=== PATIENT | female | born 2000 | race Caucasian/White ===

== ENCOUNTER 2023-11-02 02:37 | Emergency (ER) | payer SELFPAY ==
[~2023-11-02] VITALS: Ht 165.1 cm; Wt 61.0 kg
[2023-11-02 02:46] VITALS: O2SAT 99
[2023-11-02] MEDS: MORPHINE SULFATE 4 MG/ML INJ (FOR IV/IM USE) IV ONE (03:15)
[2023-11-02 03:40] LABS: BASOPHILS % 0.3 % (0.0-2.0); EOSINOPHILS % 0.6 % (0.0-5.0); HEMATOCRIT. 41.2 % (36.0-48.0); HEMOGLOBIN. 13.7 g/dL (12.0-16.0); LYMPHOCYTES % 19.2 % (20.0-50.0); MEAN CORPUSCULAR HEMOGLOBIN 31.9 pg (28.0-32.0); MEAN CORPUSCULAR HGB CONC 33.3 g/dL (31.0-37.0); MEAN CORPUSCULAR VOLUME 95.7 fL (81.0-99.0); MEAN PLATELET VOLUME 10.2 fl (7.4-10.4); MONOCYTES % 5.8 % (2.0-8.0); NEUTROPHILS % 74.1 % (40.0-76.0); PLATELET 225 x1000/uL (130-400); RED BLOOD CELL COUNT 4.31 mill/uL (4.2-5.4); RED CELL DISTRIBUTION WIDTH 13.9 % (11.6-14.6); WHITE BLOOD COUNT 12.6 x1000/uL (4.5-11.0)
[2023-11-02 03:55] LABS: CHLORIDE 107 mEq/L (98-107); POTASSIUM 3.7 mEq/L (3.5-5.1); SODIUM 141 mEq/L (136-145)
[2023-11-02 03:56] LABS: CALCIUM 9.9 mg/dL (8.7-10.4); CARBON DIOXIDE 24 mEq/L (21-32); HCG SCREEN NEGATIVE
[2023-11-02 04:01] LABS: CREATININE 0.6 mg/dL (0.6-1.0); GLUCOSE 125 mg/dL (70-105); UREA NITROGEN BLOOD 7 mg/dL (9-23)
[2023-11-02] MEDS: KETAMINE HCL 50 MG/ML 10ML IV ONE (05:11)
[2023-11-02] MEDS: PROPOFOL 200MG/20ML VIAL IV ONE (05:11)
[2023-11-02] MEDS: ONDANSETRON HCL 4MG/2ML INJ IV ONE (06:01)
[2023-11-02 08:37] VITALS: BP 96/57; PULSE 87; RESP 16; TEMP 98
== END 2023-11-02 08:41 | disposition home or self-care (01) ==
LOC: ER 02:37
DX: S52.501A Unspecified fracture of the lower end of right radius, initial encounter for closed fracture (principal); S20.214A Contusion of middle front wall of thorax, initial encounter; V49.49XA Driver injured in collision with other motor vehicles in traffic accident, initial encounter; Y93.89 Activity, other specified; Y92.89 Other specified places as the place of occurrence of the external cause; Y99.8 Other external cause status
CPT/HCPCS: 80048; 84703; 85025; 36415; 71045; 73110; 24650; 96374; 96375; 99152; 99285; J3490; J2405; J2704; J2270; Z7610; A4565